=== PATIENT | female | born 1985 | race Caucasian/White ===

== ENCOUNTER 2020-10-06 11:15 | Observation (INO) | payer MEDICAID ==
[2020-10-06 17:29] VITALS: BP_SYST 100
== END 2020-10-06 15:06 | disposition home or self-care (01) ==
LOC: SPU 11:15
PROVIDERS: ADMIT Obstetrics & Gynecology; ATTEND Obstetrics & Gynecology
DX: O42.913 Preterm premature rupture of membranes, unspecified as to length of time between rupture and onset of labor, third trimester (principal); Z3A.36 36 weeks gestation of pregnancy
CPT/HCPCS: 76815; G0378